=== PATIENT | female | born 1990 | race Caucasian/White ===

== ENCOUNTER 2017-08-16 10:46 | Emergency (ER) | payer BC ==
--- NOTE | 2017-08-16 14:23 | EDPHY ---
H & P Stated Complaint: N/V/D, blood in stool, Lower back pain since this am Time Seen by Provider: 08/16/17 14:22 HPI/ROS: HPI: This is a 27-year-old female presents with Chief Complaint: N/V/D, blood in stool, Lower back pain since this am Location: GI Quality: Nausea vomiting diarrhea Duration: Starting at 0100 Signs and Symptoms: No fever, no chills, no dysuria, noted blood in stool while wiping this morning, + vomiting multiple times lasting 5 hours, no vaginal bleeding, no vaginal discharge Timing: Lasted 5 hours, slowly improving Severity: Moderate Context: Patient reports that she ate a sandwich with her boyfriend last night , went to bed and woke up at 1:00 a.m. with severe generalized abdominal cramping and sudden onset of nausea and vomiting several times along with loose stools lasting approximately 5 hours. She notes that is slowly tapered off as she just had dry heaves. She noted some blood on her toilet tissue after wiping the last 2 times after having diarrhea. She denies any fever/hematemesis /vaginal discharge/vaginal bleeding/dysuria. Generally healthy. No history of kidney stones. No recent foreign travel. LMP 1-2 weeks ago. Modifying Factors: Sips of liquids Comment: ROS: see HPI Constitutional: No fever, no chills, no weight loss Eyes: No blurred vision Respiratory: No shortness of breath, no cough Cardiovascular: No chest pain Gastrointestinal: No nausea, no vomiting, no diarrhea Genitourinary: No dysuria Extremities: No myalgias Neurologic: No weakness, no numbness Skin: No rashes Hematologic: No bruising, no bleeding MEDICAL/SURGICAL/SOCIAL HISTORY: Medical history: Generally healthy. Does not take any regular medications. Surgical history: Denies Social history: in a relationship CONSTITUTIONAL: Pleasant well-appearing young adult white female, awake and alert, no obvious distress HEENT: Atraumatic and normocephalic, PERRL, EOMI. Tympanic membranes clear. Oropharynx clear, no exudate and moist pink mucosa. Airway patent. No lymphadenopathy. No meningismus. Cardiovascular: Normal S1/S2, tachycardia, regular rhythm, without murmur rub or gallop. PULMONARY/CHEST: Symmetrical and nontender. Clear to auscultation bilaterally. Good air movement. No accessory muscle usage. ABDOMEN: Soft, nondistended, nontender, no rebound, no guarding, no peritoneal signs, no masses or organomegaly. No CVAT. Hyperactive bowel sounds x4 quadrants. EXTREMITIES: 2/2 pulses, no deformities, no clubbing, no cyanosis or edema. NEUROLOGICAL: no focal neuro deficits. GCS 15. SKIN: Warm and dry, no erythema. no rash. Good capillary refill. Source: Patient Exam Limitations: No limitations - Personal History LMP (Females 10-55): IUD In Place Current Tetanus Diphtheria and Acellular Pertussis (TDAP): Yes - Social History Smoking Status: Former smoker Constitutional: Initial Vital Signs Temperature (C) 37.3 C 08/16/17 11:05 Heart Rate 132 H 08/16/17 11:05 Respiratory Rate 16 08/16/17 11:05 Blood Pressure 100/80 08/16/17 11:05 O2 Sat (%) 98 08/16/17 11:05 O2 Delivery Mode Room Air Allergies/Adverse Reactions: Sulfa (Sulfonamide Antibiotics) Allergy (Intermediate, Verified 08/16/17 11:05) rash/hives/fever Home Medications: Medication Instructions Recorded Loperamide HCl [Imodium 2 mg (*)] 2 mg PO Q8 PRN #12 cap 08/16/17 Ondansetron Odt [Zofran Odt 4 mg 4 mg PO Q4 PRN #12 tab 08/16/17 (*)] Medical Decision Making - Diagnostics Imaging Results: Imaging Impressions Abdomen/Pelvis CT 08/16/17 14:38 Impression: Suspected gallbladder sludge without evidence of acute cholecystitis. Otherwise , no acute abnormalities. Dr. Pineda discussed these findings by telephone with Yolande Lance at 2016 16:26. ED Course/Re-evaluation: Labs, urinalysis, IV fluids, IV medications, CT abdomen and pelvis scan ordered Given 2 L normal saline, IV Zofran, IV morphine 1605: Labs reviewed show a mild leukocytosis. No acute kidney injury/ electrolyte disturbances/elevated LFTs Urinalysis shows trace ketones; no signs of infection Abdominal exam is benign 1635: Called by Radiology who advised no signs of nephrolithiasis/ ureterolithiasis/hydronephrosis/colitis/diverticulitis/obstruction/ pyelonephritis Patient tolerating p.o. and unable to give stool specimen while in the ER for the last 3 hours. Also noted no episodes of emesis entire time Advised continue supportive care; appears to be viral in nature. Heart rate initially 130 is upon arrival; after 2 L fluid bolus; repeat heart rate 60 to 80 beats per minute. Low concern for pelvic etiology at this point. Differential Diagnosis: Abdominal pain in a female including but not limited to ovarian cyst, pelvic inflammatory disease, ovarian torsion, urinary tract infection, and appendicitis. - Data Points Laboratory Results: Laboratory Results 08/16/17 14:20 08/16/17 14:20 08/16/17 08/16/17 08/16/17 14:20 14:20 14:20 WBC RBC Hgb Hct MCV MCH MCHC RDW Plt Count MPV Neut % (Auto) Lymph % (Auto) [place] % (Auto) Eos % (Auto) Baso % (Auto) Nucleat RBC Rel Count Absolute Neuts (auto) Absolute Lymphs (auto) Absolute Monos (auto) Absolute Eos (auto) Absolute Basos (auto) Absolute Nucleated RBC Immature Gran % Immature Gran # Sodium 135 mEq/L mEq/L (134-144) Potassium 4.1 mEq/L mEq/L (3.5-5.2) Chloride 99 mEq/L mEq/L (97-110) Carbon Dioxide 23 mEq/l mEq/l (22-31) Anion Gap 13 mEq/L mEq/L (8-16) BUN 11 mg/dL mg/dL (7-23) Creatinine 0.8 mg/dL mg/dL (0.6-1.0) Estimated GFR > 60 Glucose 112 mg/dL H mg/dL (70-100) Calcium 9.9 mg/dL mg/dL (8.5-10.4) Total Bilirubin 1.1 mg/dL mg/dL 1.2 mg/dL mg/dL (0.1-1.4) (0.1-1.4) Conjugated Bilirubin 0.3 mg/dL mg/dL (0.0-0.5) Unconjugated Bilirubin 0.8 mg/dL mg/dL (0.0-1.1) AST 32 IU/L IU/L 28 IU/L IU/L (14-46) (14-46) ALT 30 IU/L IU/L 36 IU/L IU/L (9-52) (9-52) Alkaline Phosphatase 52 IU/L IU/L 53 IU/L IU/L (38-126) (38-126) Total Protein 8.0 g/dL g/dL 7.9 g/dL g/dL (6.3-8.2) (6.3-8.2) Albumin 4.7 g/dL g/dL 4.8 g/dL g/dL (3.5-5.0) (3.5-5.0) Lipase 47 IU/L IU/L (23-300) Beta HCG, Qual NEGATIVE Urine Color Urine Appearance Urine pH Ur Specific [place] Urine Protein Urine Ketones Urine Blood Urine Nitrate Urine Bilirubin Urine Urobilinogen Ur Leukocyte Esterase Urine Glucose 08/16/17 08/16/17 14:20 14:15 WBC 14.87 10^3/uL H 10^3/uL (3.80-9.50) RBC 5.01 10^6/uL 10^6/uL (4.18-5.33) Hgb 15.7 g/dL g/dL (12.6-16.3) Hct 44.1 % % (38.0-47.0) MCV 88.0 fL fL (81.5-99.8) MCH 31.3 pg pg (27.9-34.1) MCHC 35.6 g/dL g/dL (32.4-36.7) RDW 12.0 % % (11.5-15.2) Plt Count 295 10^3/uL 10^3/uL (150-400) MPV 9.2 fL fL (8.7-11.7) Neut % (Auto) 94.1 % H % (39.3-74.2) Lymph % (Auto) 2.6 % L % (15.0-45.0) [place] % (Auto) 2.7 % L % (4.5-13.0) Eos % (Auto) 0.0 % L % (0.6-7.6) Baso % (Auto) 0.2 % L % (0.3-1.7) Nucleat RBC Rel Count 0.0 % % (0.0-0.2) Absolute Neuts (auto) 13.99 10^3/uL H 10^3/uL (1.70-6.50) Absolute Lymphs (auto) 0.39 10^3/uL L 10^3/uL (1.00-3.00) Absolute Monos (auto) 0.40 10^3/uL 10^3/uL (0.30-0.80) Absolute Eos (auto) 0.00 10^3/uL L 10^3/uL (0.03-0.40) Absolute Basos (auto) 0.03 10^3/uL 10^3/uL (0.02-0.10) Absolute Nucleated RBC 0.00 10^3/uL 10^3/uL (0-0.01) Immature Gran % 0.4 % % (0.0-1.1) Immature Gran # 0.06 10^3/uL 10^3/uL (0.00-0.10) Sodium Potassium Chloride Carbon Dioxide Anion Gap BUN Creatinine Estimated GFR Glucose Calcium Total Bilirubin Conjugated Bilirubin Unconjugated Bilirubin AST ALT Alkaline Phosphatase Total Protein Albumin Lipase Beta HCG, Qual Urine Color YELLOW Urine Appearance HAZY Urine pH 5.0 (5.0-7.5) Ur Specific [place] 1.028 (1.002-1.030) Urine Protein NEGATIVE (NEGATIVE) Urine Ketones 1+ H (NEGATIVE) Urine Blood NEGATIVE (NEGATIVE) Urine Nitrate NEGATIVE (NEGATIVE) Urine Bilirubin NEGATIVE (NEGATIVE) Urine Urobilinogen NEGATIVE EU EU (0.2-1.0) Ur Leukocyte Esterase NEGATIVE (NEGATIVE) Urine Glucose NEGATIVE (NEGATIVE) Medications Given: Discontinued Medications Sodium Chloride (Ns) 1,000 mls @ 0 mls/hr IV ONCE ONE PRN Reason: Wide Open Stop: 08/16/17 14:30 Last Admin: 08/16/17 14:32 Dose: 1,000 mls Morphine Sulfate (Morphine) 6 mg IVP EDNOW ONE Stop: 08/16/17 14:38 Last Admin: 08/16/17 15:10 Dose: Not Given Ondansetron HCl (Zofran) 4 mg IVP EDNOW ONE Stop: 08/16/17 14:38 Last Admin: 08/16/17 15:10 Dose: Not Given Departure - Departure Disposition: Home, Routine, Self-Care Clinical Impression: Gastroenteritis Condition: Good Instructions: Gastroenteritis (ED) Additional Instructions: Your labs and image results today lead us to believe that you have a viral gastroenteritis. Please use Zofran as needed for nausea and vomiting and Imodium as needed for diarrhea. Rest as much as possible over the next few days. Make sure to drink plenty of fluids, including electrolyte replacement drinks, to prevent dehydration. If at any time she spiked a high fever, have intractable abdominal pain, or worsening symptoms; please return to the emergency room immediately. Referrals: [facility],. [Clinic] - As per Instructions Prescriptions: Loperamide HCl [Imodium 2 mg (*)] 2 mg PO Q8 PRN #12 cap PRN Reason: Diarrhea/Loose Stools Ondansetron Odt [Zofran Odt 4 mg (*)] 4 mg PO Q4 PRN #12 tab PRN Reason: Nausea/Vomiting, Use 1st
[2017-08-16] MEDS ORDERED: NS 1,000 ML IV ONE ×2 (14:29→14:37)
[2017-08-16 14:33] VITALS: RESP 18; TEMP 98.8
[2017-08-16 14:36] LABS: % IMMATURE GRANULYOCYTES 0.4 % (0.0-1.1); ABSOLUTE IMMATURE GRANULOCYTES 0.06 10^3/uL (0.00-0.10); ADD DIFF? NO; ADD MORPH? NO; ADD SCAN? NO; ATYPICAL LYMPHOCYTE FLAG 10 (0-99); FRAGMENT RBC FLAG 0 (0-99); HEMATOCRIT 44.1 % (38.0-47.0); HEMOGLOBIN 15.7 g/dL (12.6-16.3); LEFT SHIFT FLG 10 (0-99); LIPEMIA HEMOLYSIS FLAG 90 (0-99); MEAN CELL HEMOGLOBIN 31.3 pg (27.9-34.1); MEAN CELL HEMOGLOBIN CONCENTR. 35.6 g/dL (32.4-36.7); MEAN PLATELET VOLUME 9.2 fL (8.7-11.7); PLATELET CLUMPS FLAG 0 (0-99); PLATELET COUNT 295 10^3/uL (150-400); RED BLOOD CELL COUNT 5.01 10^6/uL (4.18-5.33)
[2017-08-16] MEDS ORDERED: ONDANSETRON 4 MG/2 ML VIAL IVP ONE (14:37)
[2017-08-16 14:38] LABS: COLOR YELLOW; LEUKOCYTE ESTERASE,URINE NEGATIVE (NEGATIVE); NITRITE,URINE NEGATIVE (NEGATIVE)
[2017-08-16 15:07] LABS: ALANINE AMINOTRANSFERASE 36 IU/L (9-52); ALBUMIN 4.8 g/dL (3.5-5.0); ALKALINE PHOSPHATASE 53 IU/L (38-126); ANION GAP 13 mEq/L (8-16); ASPARTATE AMINOTRANSFERASE 28 IU/L (14-46); BILIRUBIN,TOTAL 1.2 mg/dL (0.1-1.4); CALCIUM 9.9 mg/dL (8.5-10.4); CARBON DIOXIDE 23 mEq/l (22-31); CHLORIDE 99 mEq/L (97-110); CREATININE 0.8 mg/dL (0.6-1.0); GLOMERULAR FILTRATION RATE > 60; GLUCOSE 112 mg/dL (70-100); POTASSIUM 4.1 mEq/L (3.5-5.2); SODIUM 135 mEq/L (134-144); TOTAL PROTEIN 7.9 g/dL (6.3-8.2)
[2017-08-16 15:09] LABS: ALBUMIN 4.7 g/dL (3.5-5.0); BILIRUBIN,TOTAL 1.1 mg/dL (0.1-1.4); BILIRUBIN-CONJUGATED 0.3 mg/dL (0.0-0.5); BILIRUBIN-UNCONJUGATED 0.8 mg/dL (0.0-1.1)
[2017-08-16 16:39] VITALS: BP 102/71; PULSE 98; O2SAT 97
== END 2017-08-16 16:44 | disposition home or self-care (01) ==
LOC: EDBD 10:46
DX: K52.9 Noninfective gastroenteritis and colitis, unspecified (principal); Z87.891 Personal history of nicotine dependence